=== PATIENT | male | born 1975 | race Caucasian/White ===

== ENCOUNTER 2019-02-17 22:01 | Emergency (ER) | payer OTHER ==
[2019-02-17] MEDS ORDERED: Alum Hydrox/Mag Hydrox/Simeth 15 ML, Lidocaine 2% 15 ML PO ONE ×2 (22:43)
--- NOTE | 2019-02-17 22:47 | EDM.PDOC ---
ED HPI GENERAL MEDICAL PROBLEM - General Chief Complaint: Chest Pain Stated Complaint: CHEST PAIN Time Seen by Provider: 02/17/19 22:35 Source of Information: Reports: Patient History Limitations: Reports: Other (no old records) - History of Present Illness INITIAL COMMENTS - FREE TEXT/NARRATIVE: 43 yo male from [facility] presents with about a week's duration of substernal CP that is getting worse tonight. Has not been seen for this. Reports more indigestion. Has no hx of CAD. Is a 1 ppd smoker. No SOB, nausea or diaphoresis. No pleuritic component. Tried antacids and got slight, transient relief. Drink beer fairly heavily. Onset: Gradual Onset Date: 02/10/19 Duration: Week(s): (1), Getting Worse Location: Reports: Chest Quality: Reports: Burning Severity: Moderate Improves with: Reports: Other (antacids) Worsens with: Reports: Other (drank a beer today and it made it worse. ) Context: Reports: Other (see HPI) Associated Symptoms: Reports: No Other Symptoms, Chest Pain Treatments SAMPLE CUTTER: Reports: Other (see below) (none) Chest Pain Score (Numeric/FACES): 6 - Related Data Allergies Allergy/AdvReac Type Severity Reaction Status Date / Time No Known Allergies Allergy Verified 02/17/19 22:23 Home Meds: Home Meds Fluticasone Propionate [Flonase] 1 spray INH DAILY 02/17/19 [History] Omeprazole 40 mg PO BEDTIME #30 cap.sr 02/17/19 [Rx] Propranolol [Inderal] 1 tab PO DAILY 02/17/19 [History] Past Medical History HEENT History: Reports: Impaired Vision Cardiovascular History: Reports: Other (See Below) Other Cardiovascular History: tachycardia Musculoskeletal History: Reports: Fracture - Infectious Disease History Infectious Disease History: Reports: Chicken Pox Social & Family History - Family History Family Medical History: Noncontributory - Tobacco Use Smoking Status *Q: Current Every Day Smoker Years of Tobacco use: 23 Packs/Tins Daily: 1 - Caffeine Use Caffeine Use: Reports: Coffee - Alcohol Use Days Per Week of Alcohol Use: 7 Number of Drinks Per Day: 3 Total Drinks Per Week: 21 Date of Last Drink: 02/17/19 - Recreational Drug Use Recreational Drug Use: Yes Recreational Drug Type: Reports: Marijuana/Hashish Recreational Drug Use Frequency: Socially ED ROS GENERAL - Review of Systems Review Of Systems: See Below Constitutional: Reports: No Symptoms HEENT: Reports: No Symptoms Respiratory: Reports: No Symptoms Cardiovascular: Reports: Chest Pain (substernal burning). Denies: Dyspnea on Exertion, Edema, Lightheadedness, Orthopnea, Palpitations GI/Abdominal: Reports: Abdominal Pain (epigastric ). Denies: Black Stool, Bloody Stool, Constipation, Diarrhea, Distension, Hematemesis, Hematochezia, Melena, Nausea, Vomiting : Reports: No Symptoms Musculoskeletal: Reports: No Symptoms Skin: Reports: No Symptoms Neurological: Reports: No Symptoms Psychiatric: Reports: No Symptoms ED EXAM, GI/ABD - Physical Exam Exam: See Below Exam Limited By: No Limitations General Appearance: Alert, WD/WN, No Apparent Distress Eyes: Bilateral: Normal Appearance Ears: Normal External Exam, Normal Canal, Hearing Grossly Normal Nose: Normal Inspection, No Blood Throat/Mouth: Normal Inspection, Normal Lips, Normal Oropharynx, Normal Voice, No Airway Compromise Head: Atraumatic, Normocephalic Neck: Normal Inspection Respiratory/Chest: No Respiratory Distress, Lungs Clear, Normal Breath Sounds, No Accessory Muscle Use Cardiovascular: Regular Rate, Rhythm, No Edema GI/Abdominal Exam: Normal Bowel Sounds, Soft, No Distention, Tender (epigastric) . No: Non-Tender, Distended, Guarding, Rigid, Rebound Back Exam: Normal Inspection. No: CVA Tenderness (R), CVA Tenderness (L) Extremities: Normal Inspection, Normal Range of Motion, Non-Tender, No Pedal Edema Neurological: Alert, Oriented, CN II-XII Intact, Normal Cognition, No Motor/ Sensory Deficits Psychiatric: Normal Affect, Normal Mood Skin Exam: Warm, Dry, Intact, Normal Color, No Rash EKG INTERPRETATION EKG Date: 02/17/19 Time: 22:15 Rhythm: NSR Rate (Beats/Min): 72 [place]: Normal P-Wave: Present QRS: Normal ST-T: Normal QT: Normal Comparison: NA - No Prior EKG Course - Vital Signs Text/Narrative:: Good relief with GI cocktail. Last Recorded V/S: Last Vital Signs Temp 35.4 C 02/17/19 22:31 Pulse 64 02/17/19 22:31 Resp 16 02/17/19 22:31 BP 130/87 02/17/19 22:31 Pulse Ox 94 L 07/27/19 22:31 - Orders/Labs/Meds Orders: Active Orders 24 hr Category Date Time Status Cardiac Monitoring [RC] .As Directed Care 02/17/19 22:06 Active EKG Documentation Completion [RC] ASDIRECTED Care 02/17/19 22:06 Active EKG 12 Lead [EK] Routine Ther 02/17/19 22:06 Ordered Meds: Medications Discontinued Medications Generic Name Dose Route Start Last Admin Trade Name Marcy PRN Reason Stop Dose Admin Al Hydroxide/Mg Hydroxide 15 0 ml 02/17/19 22:43 02/17/19 22:55 ml/ Lidocaine HCl 15 ml PO 02/17/19 22:44 30 ml ONETIME ONE Administration Departure - Departure Time of Disposition: 23:15 Disposition: Home, Self-Care 01 Condition: Fair Clinical Impression: GERD (gastroesophageal reflux disease) Qualifiers: Esophagitis presence: with esophagitis Qualified Code(s): K21.0 - Gastro- esophageal reflux disease with esophagitis - Discharge Information *PRESCRIPTION DRUG MONITORING PROGRAM REVIEWED*: No *COPY OF PRESCRIPTION DRUG MONITORING REPORT IN PATIENT ABDIEL: No Instructions: Food Choices for Gastroesophageal Reflux Disease, Adult Referrals: PCP,None [Primary Care Provider] - Forms: ED Department Discharge Additional Instructions: Take omeprazole every evening. Add Gaviscon 30 ml after meals and at bedtime as needed. Acetaminophen up to 1000 mg every 6 hrs for pain relief. Avoid: caffeine, carbonated beverages, alcohol, tobacco, ibuprofen, naproxen or aspirin. Try sleeping with the head of your bed elavated about a foot. F/U with your provider. - My Orders Last 24 Hours: My Active Orders 02/17/19 22:06 Cardiac Monitoring [RC] .As Directed EKG Documentation Completion [RC] ASDIRECTED EKG 12 Lead [EK] Routine - Assessment/Plan Last 24 Hours: My Active Orders 02/17/19 22:06 Cardiac Monitoring [RC] .As Directed EKG Documentation Completion [RC] ASDIRECTED EKG 12 Lead [EK] Routine
[2019-02-17] MEDS ORDERED: Pantoprazole 40 MG Tab.CR PO SCH (23:15)
== END 2019-02-17 23:27 | disposition home or self-care (01) ==
LOC: JP.ED 22:01
DX: K21.0 Gastro-esophageal reflux disease with esophagitis (principal); F17.210 Nicotine dependence, cigarettes, uncomplicated
CPT/HCPCS: 93005; 99284; A9270